=== PATIENT | female | born 1970 | race African-American/Black ===

== ENCOUNTER 2017-11-30 17:07 | Emergency (ER) | payer BC, OTHER ==
[~2017-11-30] VITALS: Ht 170.2 cm; Wt 88.0 kg
[~2017-11-30 17:07] MED LIST: IOHEXOL 350 MG/ML 10 ML VIAL (for RAD DIAG) IVCONTRAST ONE; TRAM50 PO; ZOFR4TAB3 SL
[2017-11-30 17:15] VITALS: BP 130/87; PULSE 79; RESP 16; TEMP 98.4; O2SAT 98
--- NOTE | 2017-11-30 18:39 | PD ---
HPI Chief Complaint: Numbness/Tingling Time Seen by Provider: 18:28 Travel History International Travel<30 days: No Contact w/Intl Traveler<30days: No Traveled to known affect area: No History of Present Illness HPI Patient comes in complaining of an indolent ongoing numbness to her right upper extremity. Sometimes feels like a sharp electric shock type pain sometimes it is tingly and numb which is the case today. Patient gets regular adjustments by chiropractor. And had an adjustment yesterday when she felt great afterwards but today she is feeling this persistent numbness to her right extremity including her entire right arm. Patient states that as she does any kind of shoulder shrugs her pain worsens. Rates the pain at about a 6 out of 10. Patient is only allergic to pineapple Past medical and surgical history significant for hiatal hernia cholecystectomy partial hysterectomy due to cervical cancer without metastasis, , rheumatoid arthritis, carpal tunnel release and ERCP. PFSH Past Medical History Arthritis: Yes Autoimmune Disease: Yes (RA) Cancer: Yes (CERVICAL) Cardiovascular Problems: No Diabetes: No Diminished Hearing: No Gastrointestinal Disorders: Yes Glaucoma: No Genitourinary: No Hepatitis: No Hiatal Hernia: Yes (REPAIRED 20 YEARS AGO) Hypertension: No Immune Disorder: No Medical other: Yes (ARTHRITIS) Musculoskeletal: Yes Neurologic: Yes Psychiatric: No Reproductive: No Respiratory: No Migraines: Yes Thyroid Disease: No Influenza Vaccination: No ?: Not Menopausal: Yes Past Surgical History Abdominal Surgery: Yes (LAPAROSCOPIC CHOLECYSTECTOMY 91') Section: Yes (x 1) Cholecystectomy: Yes Gynecologic Surgery: Yes ( 89') Hysterectomy: Yes Oral Surgery: Yes (WISDOM TEETH REMOVED 2008) Pacemaker: No Other Surgery: Yes (ERCP-CARPEL TUNNEL RIGHT HAND) Social History Alcohol Use: Yes (OCCASIONALLY- beer; 2 DAYS AGO--1 MIXED DRINK) Tobacco Use: No Substance Use: No Allergies-Medications (Allergen,Severity, Reaction): Coded Allergies: pineapple (Unverified Allergy, Severe, SWOLLEN LIPS, 11/30/17) Reported Meds & Prescriptions Reported Meds & Active Scripts Active Review of Systems General / Constitutional: No: Fever Eyes: No: Visual changes HENT: No: Headaches Cardiovascular: No: Chest Pain or Discomfort Respiratory: No: Shortness of Breath Gastrointestinal: No: Abdominal Pain Genitourinary: No: Dysuria Musculoskeletal: Positive: Pain Skin: No Rash Neurologic: No: Weakness Psychiatric: No: Depression Endocrine: No: Polydipsia Hematologic/Lymphatic: No: Easy Bruising Physical Exam Narrative GENERAL: SKIN: Warm and dry. HEAD: Atraumatic. Normocephalic. EYES: Pupils equal and round. No scleral icterus. No injection or drainage. ENT: No nasal bleeding or discharge. Mucous membranes pink and moist. NECK: Trachea midline. No JVD. CARDIOVASCULAR: Regular rate and rhythm. RESPIRATORY: No accessory muscle use. Clear to auscultation. Breath sounds equal bilaterally. GASTROINTESTINAL: Abdomen soft, non-tender, nondistended. Hepatic and splenic margins not palpable. MUSCULOSKELETAL: Extremities without clubbing, cyanosis, or edema. No obvious deformities. Radial and ulnar pulses were all within normal limits however the patient did have reproducible pain with reaching over her head, and any deltoid movement caused pain down the arm. Right arm was not edematous when compared to the left. Both upper extremities were warm both upper extremities had good motor movement. However the patient did have decreased 2 point sensory on the entire right upper extremity including C4 all the way through T1 and for this reason I was concerned for the possibility of brachial plexopathy NEUROLOGICAL: Awake and alert. No obvious cranial nerve deficits. Motor grossly within normal limits. Five out of 5 muscle strength in the arms and legs. Normal speech. PSYCHIATRIC: Appropriate mood and affect; insight and judgment normal. Data Data Last Documented VS Vital Signs Date Time Temp Pulse Resp B/P (MAP) Pulse Ox O2 Delivery O2 Flow Rate FiO2 11/30/17 17:15 98.4 79 16 130/87 (101) 98 Orders Orders Complete Blood Count With Diff (11/30/17 18:28) Comprehensive Metabolic Panel (11/30/17 18:28) Ct Thorax/ Chest W Iv Contrast (11/30/17 ) Iv Access Insert/Monitor (11/30/17 18:28) [facility] Medical Decision Making Medical Screen Exam Complete: Yes Emergency Medical Condition: Yes Medical Record Reviewed: Yes Differential Diagnosis Paresthesias versus thoracic outlet syndrome versus brachial plexopathy versus rheumatoid arthritis Narrative Course C4 all the way through T1 and for this reason I was concerned for the possibility of brachial plexopathy versus thoracic outlet syndrome..... Patient is signed out to Dr. Zuluaga pending CT and disposition. Diagnosis Primary Impression: CERVICAL RADICULOPATHY Cristiano Turk MD Nov 30, 2017 18:38
[2017-11-30 19:09] LABS: AUTOMATED NEUTROPHIL # 4.2 TH/MM3 (1.8-7.7); BASOPHIL % 0.5 % (0.0-2.0); EOSINOPHIL # 0.1 TH/MM3 (0-0.4); EOSINOPHIL % 1.4 % (0.0-4.0); HEMATOCRIT 37.1 % (35.0-46.0); HEMOGLOBIN 12.6 GM/DL (11.6-15.3); LYMPH % 45.3 % (9.0-44.0); LYMPHOCYTE # 4.3 TH/MM3 (1.0-4.8); MEAN CELL VOLUME 88.7 FL (80.0-100.0); MEAN CORPUSCULAR HEMOGLOBIN 30.1 PG (27.0-34.0); MEAN CORPUSCULAR HGB CONC 33.9 % (32.0-36.0); MONO % 7.7 % (0.0-8.0); MONOCYTE # 0.7 TH/MM3 (0-0.9); NEUT % 45.1 % (16.0-70.0); PLATELET COUNT 309 TH/MM3 (150-450); RED BLOOD COUNT 4.18 MIL/MM3 (4.00-5.30); RED CELL DISTRIBUTION WIDTH 12.6 % (11.6-17.2); WHITE BLOOD COUNT 9.3 TH/MM3 (4.0-11.0)
[2017-11-30 19:14] LABS: CHLORIDE 104 MEQ/L (98-107); SODIUM (NA) 141 MEQ/L (136-145)
[2017-11-30 19:18] LABS: ALBUMIN 4.1 GM/DL (3.4-5.0); BLOOD UREA NITROGEN 12 MG/DL (7-18); GLUCOSE,RANDOM 99 MG/DL (74-106)
[2017-11-30 19:21] LABS: ALT (GPT) 24 U/L (10-53); AST (GOT) 21 U/L (15-37)
[2017-11-30 19:22] LABS: CREATININE 0.86 MG/DL (0.50-1.00); GLOMERULAR FILTRATION RATE 86 ML/MIN (>89)
[2017-11-30 19:23] LABS: TOTAL BILIRUBIN ADULT 0.2 MG/DL (0.2-1.0); TOTAL PROTEIN 8.7 GM/DL (6.4-8.2)
[2017-11-30 19:24] LABS: ALKALINE PHOSPHATASE 119 U/L (45-117)
--- NOTE | 2017-11-30 20:09 | RADRPT ---
EXAM DATE/TIME: 11/30/2017 19:27 [place] COMPARISON: No previous studies available for comparison. INDICATIONS : Right upper extremity numbness and pain. Evaluate for thoracic outlet syndrome. IV CONTRAST: 75 cc Omnipaque 350 (iohexol) IV RADIATION DOSE: 10.86 CTDIvol (mGy) MEDICAL HISTORY : Hernia, hiatal. Carcinoma, not otherwise specified. SURGICAL HISTORY : Cholecystectomy. ENCOUNTER: Initial ACUITY: 2 days PAIN SCALE: 10/10 LOCATION: Right upper chest TECHNIQUE: Volumetric scanning of the chest was performed. Using automated exposure control and adjustment of t he mA and/or kV according to patient size, radiation dose was kept as low as reasonably achievable to obtain optimal diagnostic quality images. DICOM format image data is available electronically for review and comparison. Follow-up recommendations for detected pulmonary nodules are based at a minimum on nodule size and pa tient risk factors according to Fleischner Society Guidelines. FINDINGS: LUNGS: There is no consolidation or pneumothorax. No concerning pulmonary nodule is visualized. PLEURA: There is no pleural thickening or pleural effusion. MEDIASTINUM: The heart and great vessels demonstrate no acute abnormality. There is no mediastinal or hilar lymph adenopathy. AXILLAE: Within normal limits. No lymphadenopathy. SKELETAL: Within normal limits for patient age. MISCELLANEOUS: The visualized upper abdominal organs demonstrate no acute abnormality. CONCLUSION: 1. No acute findings. No apical lung mass and no evidence for compression of the subclavian vasculatu re. Rodríguez Jimenez MD on November 30, 2017 at 20:06 Board Certified Radiologist. This report was verified electronically.
[2017-11-30] MEDS ORDERED: IBUP-232 PO (20:19)
--- NOTE | 2017-11-30 20:22 | PD ---
Physical Exam Time Seen by Provider: 20:[address] Turk left this patient with me to check the results of the CT thorax/ chest with IV contrast and likely discharge. Data Data Last Documented VS Vital Signs Date Time Temp Pulse Resp B/P (MAP) Pulse Ox O2 Delivery O2 Flow Rate FiO2 11/30/17 17:15 98.4 79 16 130/87 (101) 98 Orders Orders Complete Blood Count With Diff (11/30/17 18:28) Comprehensive Metabolic Panel (11/30/17 18:28) Ct Thorax/ Chest W Iv Contrast (11/30/17 ) Iv Access Insert/Monitor (11/30/17 18:28) Iohexol 350 Inj (Omnipaque 350 Inj) (11/30/17 16:50) Labs Laboratory Tests Test 11/30/17 19:00 White Blood Count 9.3 TH/MM3 Red Blood Count 4.18 MIL/MM3 Hemoglobin 12.6 GM/DL Hematocrit 37.1 % Mean Corpuscular Volume 88.7 FL Mean Corpuscular Hemoglobin 30.1 PG Mean Corpuscular Hemoglobin Concent 33.9 % Red Cell Distribution Width 12.6 % Platelet Count 309 TH/MM3 Mean Platelet Volume 8.0 FL Neutrophils (%) (Auto) 45.1 % Lymphocytes (%) (Auto) 45.3 % Monocytes (%) (Auto) 7.7 % Eosinophils (%) (Auto) 1.4 % Basophils (%) (Auto) 0.5 % Neutrophils # (Auto) 4.2 TH/MM3 Lymphocytes # (Auto) 4.3 TH/MM3 Monocytes # (Auto) 0.7 TH/MM3 Eosinophils # (Auto) 0.1 TH/MM3 Basophils # (Auto) 0.0 TH/MM3 CBC Comment DIFF FINAL Differential Comment Blood Urea Nitrogen 12 MG/DL Creatinine 0.86 MG/DL Random Glucose 99 MG/DL Total Protein 8.7 GM/DL Albumin 4.1 GM/DL Calcium Level 9.0 MG/DL Alkaline Phosphatase 119 U/L Aspartate Amino Transf (AST/SGOT) 21 U/L Alanine Aminotransferase (ALT/SGPT) 24 U/L Total Bilirubin 0.2 MG/DL Sodium Level 141 MEQ/L Potassium Level 3.8 MEQ/L Chloride Level 104 MEQ/L Carbon Dioxide Level 29.0 MEQ/L Anion Gap 8 MEQ/L Estimat Glomerular Filtration Rate 86 ML/MIN [place] Medical Record Reviewed: Yes Supervised Visit with GRACE: No Interpretation(s) The CT thorax/chest with IV contrast shows no acute findings. No apical lung mass or evidence for compression of the subclavian vasculature is present. Differential Diagnosis Cervical radiculopathy, thoracic outlet obstruction, thoracic mass Narrative Course The patient appears to have cervical radiculopathy. There is no evidence for any thoracic outlet obstruction or mass. The patient will get a soft cervical collar and ibuprofen 600 mg 3 times day. She needs to follow-up with her primary care physician. Diagnosis Primary Impression: CERVICAL RADICULOPATHY Additional Instruction: As we discussed, rest is important for the neck, irritation of the nerves occurs when you turn the neck back and forth. Basically, what is painful is what you should not be doing. The soft cervical collar is just to remind you not to turn her head. Try to get a more comfortable desk at a better height to work at during work. Med/Other Pt SpecificInfo: Prescription(s) given Scripts Ibuprofen (Ibuprofen) 600 Mg Tab 600 MG PO TID, #44 TAB 0 Refills Prov: Kleber Zuluaga MD 11/30/17 Disposition: DISCHARGE HOME Condition: Stable Kleber Zuluaga MD Nov 30, 2017 20:22
[2017-11-30] MEDS ORDERED: KETOROLAC TROMETHAMINE 60 MG/2 ML (IM) VIAL IVP ONE (20:30)
== END 2017-11-30 20:57 | disposition home or self-care (01) ==
LOC: PHEFT 17:07
DX: M54.12 Radiculopathy, cervical region (principal)
CPT/HCPCS: 71260; 80053; 85025; 96374; 99284; J1885; L0120; Q9967